=== PATIENT | female | born 1935 | race Caucasian/White ===

== ENCOUNTER 2024-06-29 11:24 | Inpatient (IN) | payer MEDICARE ==
[~2024-06-29] VITALS: Ht 162.6 cm; Wt 48.1 kg
[2024-06-29] MEDS ORDERED: ATOR10TA PO (11:56)
[2024-06-29] MEDS ORDERED: ASPI81TA31 PO (11:56)
[2024-06-29] MEDS ORDERED: ACET325T53 PO (11:56)
[2024-06-29] MEDS ORDERED: AMLO2.5T4 PO (11:56)
[2024-06-29] MEDS ORDERED: ACET325C7 PO (11:56)
[2024-06-29] MEDS ORDERED: NA P133E RC (11:56)
[2024-06-29] MEDS ORDERED: LEVO50TA8 PO (11:56)
[2024-06-29] MEDS ORDERED: MAGN400O6 PO (11:56)
[2024-06-29] MEDS ORDERED: BISA10SU61 RC (11:56)
[2024-06-29] MEDS ORDERED: ASCO500C18 PO (11:56)
[2024-06-29] MEDS ORDERED: MULT-213 PO (11:56)
[2024-06-29 12:43] LABS: BASOPHILS # (AUTO) 0.3 K/UL (0.0-0.2); EOSINOPHILS % (AUTO) 0.1 % (0.0-7.0); HEMATOCRIT 42.4 % (31.2-41.9); HEMOGLOBIN 13.8 g/dL (10.9-14.3); MEAN CORPUSCULAR HEMOGLOBIN 31.9 uug (24.7-32.8); MEAN CORPUSCULAR HGB CONC 33 g/dL (32.3-35.6); MONOCYTES # (AUTO) 0.4 K/uL (0.1-1.30); MONOCYTES % (AUTO) 2.8 % (0.0-11.0); NEUTROPHILS # (AUTO) 12.3 K/uL (1.8-8.9); NEUTROPHILS % (AUTO) 88.1 % (38.5-71.5); PLATELET COUNT (AUTO) 332 K/uL (179-408); RED BLOOD CELL COUNT(AUTO) 4.32 MIL/uL (3.63-4.92); RED CELL DISTRIBUTION WIDTH 13.4 % (12.3-17.7)
[2024-06-29 12:56] LABS: CALCIUM 8.9 mg/dL (8.5-10.1); CARBON DIOXIDE 38 mmol/L (21-32); CHLORIDE 107 mmol/L (98-107); CREATININE 0.4 mg/dL (0.6-1.3); GLUCOSE 120 mg/dL (74-106); SODIUM SERUM 146 mmol/L (136-145); UREA NITROGEN, BLOOD 14 mg/dL (7-18)
[2024-06-29 13:04] LABS: POTASSIUM 4.4 mmol/L (3.5-5.1)
[2024-06-29 13:07] LABS: DIFFERENTIAL COMMENT 1
[2024-06-29 13:09] LABS: ALANINE AMINOTRANSFERASE 21 U/L (14-59); ALBUMIN 2.1 g/dL (3.4-5.0); ALKALINE PHOSPHATASE 70 U/L (50-136); ASPARTATE AMINOTRANSFERASE 24 U/L (15-37); BILIRUBIN,DIRECT 0.1 mg/dL (0.0-0.2); BILIRUBIN,TOTAL 0.6 mg/dL (0.2-1.0); NT-PRO BNP 128 pg/mL (0-125); TOTAL PROTEIN, SERUM 6.3 g/dL (6.4-8.2)
[2024-06-29] MEDS: IV NORMAL SALINE 1000 ML BAG IV ONE (13:15)
[2024-06-29 15:49] LABS: *BILIRUBIN,URIN NEGATIVE (NEGATIVE); *BLOOD, URINE NEGATIVE (NEGATIVE); *COLOR,URINE YELLOW (YELLOW); *KETONES,URINE 1+ (NEGATIVE); *PROTEIN,URINE NEGATIVE (NEGATIVE); *UROBILINOGEN,URINE 0.2 E.U./dl (NORMAL); LEUKOCYTE ESTERASE ,URINE NEGATIVE (NEGATIVE); NITRITE, URINE NEGATIVE (NEGATIVE); PH,URINE 8.5 (5.0-8.0); UGLUCOSE NEGATIVE (NEGATIVE)
[2024-06-29 15:52] LABS: *CLARITY,URINE CLOUDY (CLEAR)
[2024-06-29 16:03] LABS: BACTERIA,URINE FEW /HPF (NONE SEEN); RBC,URINE 0-3 /HPF (0-3); SQUAMOUS EPITHELIAL CELL,UR NONE SEEN /HPF (NONE SEEN); URINE AMORPHOUS PHOSPHATES MODERATE /HPF; WBC,URINE 0-3 /HPF (0-3)
[2024-06-29] MEDS ORDERED: ASCO500T85 PO (17:28)
[2024-06-29] MEDS ORDERED: ACET-2154 PO (17:29)
[2024-06-29 18:42] VITALS: BP 151/73; TEMP 97.5; O2SAT 96
[2024-06-29] MEDS ORDERED: BISACODYL 10 MG SUPP.RECT RC PRN (19:00)
[2024-06-29] MEDS ORDERED: MAGNESIUM HYDROXIDE 30 ML LIQUID UDC PO PRN (19:00)
[2024-06-29] MEDS ORDERED: FLEET ENEMA 133 ML BOTTLE RC PRN (19:00)
[2024-06-29] MEDS ORDERED: ACETAMINOPHEN 325 MG TABLET PO PRN ×2 (19:00)
[2024-06-29 20:00] VITALS: BP 147/69; TEMP 97.5; O2SAT 96
[2024-06-29 20:24] VITALS: O2SAT 97
[2024-06-29] MEDS: ATORVASTATIN 10 MG TABLET PO SCH (21:13)
[2024-06-30] VITALS (7 sets, daily range): BP systolic 121–155; BP diastolic 63–70; TEMP 97.6–98.2; O2SAT 95–99
[2024-06-30] MEDS: LEVOTHYROXINE SODIUM 50 MCG TABLET PO SCH (06:07)
[2024-06-30] MEDS: ASPIRIN 81 MG TAB.CHEW PO SCH (08:38)
[2024-06-30] MEDS: MULTIVITAMINS,THERAPEUTIC TABLET PO SCH (08:38)
[2024-06-30] MEDS: ASCORBIC ACID 500 MG TABLET PO SCH (08:38)
[2024-06-30] MEDS: AMLODIPINE 2.5 MG TABLET PO SCH (08:51)
[2024-06-30] MEDS: IV D5W 1000ML 1,000 ML IV PRN (08:58)
[2024-06-30] MEDS: levoFLOXacin 500 MG/D5W 500 MG in PREMIXED 1 EACH IV ONE (12:46)
[2024-06-30] MEDS ORDERED: ALBUTEROL SULFATE 8 GM HFA.AER.AD IH PRN (14:00)
[2024-06-30] MEDS ORDERED: ALBUTEROL SULFATE 2.5 MG/3 ML NEBU NEB PRN (14:00)
[2024-07-01 06:00] VITALS: BP 150/75; TEMP 98.1; O2SAT 93
[2024-07-01 06:14] LABS: ABG BASE EXCESS 7.9 mmol/L (-2.0-3.0); ABG HCO3 31.2 mmol/L (21.0-28.0); ABG PCO2 38.4 mmHg (32.0-45.0); ABG PH 7.527 (7.350-7.450); ABG SITE RIGHT RADIAL; ABG TOTAL HEMOGLOBIN 14.6 G/dL (12.0-16.0); AaDO2 94.7 mmHg; COHb 0.8 % (0.5-1.5); MetHb 0.2 % (0.0-1.5); O2Hb 93.1 % (94.0-98.0)
[2024-07-01 06:49] LABS: BASOPHILS # (AUTO) 0.1 K/UL (0.0-0.2); BASOPHILS % (AUTO) 0.6 % (0.0-2.0); EOSINOPHILS % (AUTO) 0.2 % (0.0-7.0); HEMATOCRIT 40.8 % (31.2-41.9); HEMOGLOBIN 13.9 g/dL (10.9-14.3); LYMPHOCYTES # (AUTO) 1.1 K/uL (0.8-4.8); LYMPHOCYTES % (AUTO) 10.5 % (20.5-51.5); MEAN CORPUSCULAR HEMOGLOBIN 32.9 uug (24.7-32.8); MEAN CORPUSCULAR HGB CONC 34 g/dL (32.3-35.6); MEAN CORPUSCULAR VOLUME 96.5 fL (75.5-95.3); MONOCYTES # (AUTO) 0.5 K/uL (0.1-1.30); MONOCYTES % (AUTO) 4.6 % (0.0-11.0); NEUTROPHILS # (AUTO) 9.2 K/uL (1.8-8.9); NEUTROPHILS % (AUTO) 84.1 % (38.5-71.5); PLATELET COUNT (AUTO) 277 K/uL (179-408); RED BLOOD CELL COUNT(AUTO) 4.23 MIL/uL (3.63-4.92); WHITE BLOOD COUNT (AUTO) 10.9 K/uL (3.8-11.8)
[2024-07-01 07:19] LABS: ALANINE AMINOTRANSFERASE 22 U/L (14-59); ALBUMIN 2.7 g/dL (3.4-5.0); ALKALINE PHOSPHATASE 72 U/L (50-136); ASPARTATE AMINOTRANSFERASE 13 U/L (15-37); BILIRUBIN,TOTAL 0.7 mg/dL (0.2-1.0); CALCIUM 8.5 mg/dL (8.5-10.1); CARBON DIOXIDE 34 mmol/L (21-32); CREATININE 0.2 mg/dL (0.6-1.3); GLUCOSE 107 mg/dL (74-106); PHOSPHOROUS 2.7 mg/dL (2.5-4.9); TOTAL PROTEIN, SERUM 6.1 g/dL (6.4-8.2); UREA NITROGEN, BLOOD 8 mg/dL (7-18)
[2024-07-01 07:43] LABS: DIFFERENTIAL COMMENT 1
[2024-07-01 07:54] LABS: CHLORIDE 98 mmol/L (98-107); SODIUM SERUM 132 mmol/L (136-145)
[2024-07-01 08:00] VITALS: BP 132/74; TEMP 97.6; O2SAT 93
[2024-07-01 08:06] LABS: POTASSIUM 2.5 mmol/L (3.5-5.1)
[2024-07-01] MEDS: POTASSIUM CHLORIDE 20 MEQ TAB.PRT.SR PO SCH (10:21)
[2024-07-01 11:35] VITALS: BP 154/69; TEMP 97.1; O2SAT 95
[2024-07-01] MEDS: levoFLOXacin 250MG /D5W 50 ML IV SCH (13:42)
[2024-07-01 15:28] LABS: PRE ALBUMIN 17.2 MG/DL (18.0-35.7)
[2024-07-01 15:47] VITALS: BP 139/87; TEMP 97.8; O2SAT 95
[2024-07-01 20:00] VITALS: BP 150/67; TEMP 98; O2SAT 95
[2024-07-02 04:11] VITALS: O2SAT 98
[2024-07-02 06:00] VITALS: BP 146/79; TEMP 98; O2SAT 95
[2024-07-02 07:50] LABS: BASOPHILS # (AUTO) 0.1 K/UL (0.0-0.2); BASOPHILS % (AUTO) 0.5 % (0.0-2.0); EOSINOPHILS % (AUTO) 0.3 % (0.0-7.0); HEMATOCRIT 44.8 % (31.2-41.9); HEMOGLOBIN 14.9 g/dL (10.9-14.3); LYMPHOCYTES # (AUTO) 1.1 K/uL (0.8-4.8); MEAN CORPUSCULAR HEMOGLOBIN 32.1 uug (24.7-32.8); MEAN CORPUSCULAR HGB CONC 33 g/dL (32.3-35.6); MEAN CORPUSCULAR VOLUME 96.5 fL (75.5-95.3); MONOCYTES # (AUTO) 0.6 K/uL (0.1-1.30); MONOCYTES % (AUTO) 5.5 % (0.0-11.0); NEUTROPHILS # (AUTO) 9.6 K/uL (1.8-8.9); NEUTROPHILS % (AUTO) 83.7 % (38.5-71.5); PLATELET COUNT (AUTO) 288 K/uL (179-408); RED BLOOD CELL COUNT(AUTO) 4.64 MIL/uL (3.63-4.92); RED CELL DISTRIBUTION WIDTH 13.3 % (12.3-17.7); WHITE BLOOD COUNT (AUTO) 11.5 K/uL (3.8-11.8)
[2024-07-02 07:59] LABS: CALCIUM 8.6 mg/dL (8.5-10.1); CARBON DIOXIDE 32 mmol/L (21-32); CHLORIDE 100 mmol/L (98-107); CREATININE 0.2 mg/dL (0.6-1.3); GLUCOSE 94 mg/dL (74-106); MAGNESIUM 1.8 mg/dL (1.8-2.4); PHOSPHOROUS 2.9 mg/dL (2.5-4.9); POTASSIUM 3.8 mmol/L (3.5-5.1); SODIUM SERUM 138 mmol/L (136-145); UREA NITROGEN, BLOOD 7 mg/dL (7-18)
[2024-07-02 08:14] LABS: DIFFERENTIAL COMMENT 1
[2024-07-02 11:53] VITALS: BP 135/81; TEMP 97.4; O2SAT 93
[2024-07-02 16:00] VITALS: BP 122/70; TEMP 97.6; O2SAT 96
[2024-07-02 20:21] VITALS: BP 127/73; TEMP 97.6; O2SAT 96
[2024-07-02 21:22] VITALS: O2SAT 96
[2024-07-03 06:07] VITALS: BP 130/77; TEMP 97.6; O2SAT 95
[2024-07-03 07:32] LABS: BASOPHILS % (AUTO) 0.4 % (0.0-2.0); EOSINOPHILS % (AUTO) 0.4 % (0.0-7.0); HEMATOCRIT 43.1 % (31.2-41.9); HEMOGLOBIN 14.8 g/dL (10.9-14.3); LYMPHOCYTES # (AUTO) 1.4 K/uL (0.8-4.8); LYMPHOCYTES % (AUTO) 13.4 % (20.5-51.5); MEAN CORPUSCULAR HEMOGLOBIN 33.2 uug (24.7-32.8); MEAN CORPUSCULAR HGB CONC 34 g/dL (32.3-35.6); MEAN CORPUSCULAR VOLUME 96.5 fL (75.5-95.3); MONOCYTES # (AUTO) 0.5 K/uL (0.1-1.30); MONOCYTES % (AUTO) 4.6 % (0.0-11.0); NEUTROPHILS # (AUTO) 8.5 K/uL (1.8-8.9); NEUTROPHILS % (AUTO) 81.2 % (38.5-71.5); PLATELET COUNT (AUTO) 280 K/uL (179-408); RED BLOOD CELL COUNT(AUTO) 4.47 MIL/uL (3.63-4.92); RED CELL DISTRIBUTION WIDTH 13.4 % (12.3-17.7); WHITE BLOOD COUNT (AUTO) 10.4 K/uL (3.8-11.8)
[2024-07-03 07:35] LABS: DIFFERENTIAL COMMENT 1
[2024-07-03 07:54] LABS: CALCIUM 8.6 mg/dL (8.5-10.1); CARBON DIOXIDE 31 mmol/L (21-32); CHLORIDE 98 mmol/L (98-107); CREATININE 0.4 mg/dL (0.6-1.3); GLUCOSE 119 mg/dL (74-106); PHOSPHOROUS 3.1 mg/dL (2.5-4.9); POTASSIUM 3.4 mmol/L (3.5-5.1); SODIUM SERUM 135 mmol/L (136-145); UREA NITROGEN, BLOOD 14 mg/dL (7-18)
[2024-07-03 12:00] VITALS: BP 120/66; TEMP 97; O2SAT 96
[2024-07-03] MEDS: POTASSIUM CHLORIDE 20 MEQ TAB.PRT.SR PO ONE (14:46)
[2024-07-03 16:00] VITALS: BP 126/67; TEMP 97.4; O2SAT 93
== END 2024-07-03 18:11 | DRG 186 ==
LOC: ER 11:27 → TELE3 17:04 → MEDSURG3 06-30 10:00
PROVIDERS: ADMIT Internal Medicine; ATTEND Internal Medicine
PROC: 05HB33Z Insertion of Infusion Device into Right Basilic Vein, Percutaneous Approach (ICD-10-PCS; principal; 2024-06-29)
DX: J90 Pleural effusion, not elsewhere classified (principal); J96.01 Acute respiratory failure with hypoxia; I69.359 Hemiplegia and hemiparesis following cerebral infarction affecting unspecified side; E87.0 Hyperosmolality and hypernatremia; I69.351 Hemiplegia and hemiparesis following cerebral infarction affecting right dominant side; E87.1 Hypo-osmolality and hyponatremia; N39.0 Urinary tract infection, site not specified; R62.7 Adult failure to thrive; E86.0 Dehydration; R53.81 Other malaise; E78.5 Hyperlipidemia, unspecified; R91.1 Solitary pulmonary nodule; E03.9 Hypothyroidism, unspecified; E87.6 Hypokalemia; R26.2 Difficulty in walking, not elsewhere classified; F17.210 Nicotine dependence, cigarettes, uncomplicated; I25.10 Atherosclerotic heart disease of native coronary artery without angina pectoris; Z95.5 Presence of coronary angioplasty implant and graft; Z88.6 Allergy status to analgesic agent; Z87.01 Personal history of pneumonia (recurrent); Z88.0 Allergy status to penicillin; Z91.81 History of falling; Z99.81 Dependence on supplemental oxygen; J43.1 Panlobular emphysema; I71.40 Abdominal aortic aneurysm, without rupture, unspecified; I10 Essential (primary) hypertension; K44.9 Diaphragmatic hernia without obstruction or gangrene; K57.30 Diverticulosis of large intestine without perforation or abscess without bleeding; K80.20 Calculus of gallbladder without cholecystitis without obstruction; M89.8X9 Other specified disorders of bone, unspecified site; R29.6 Repeated falls; Z79.899 Other long term (current) drug therapy; R13.10 Dysphagia, unspecified
CPT/HCPCS: 36415; 36600; 70450; 71045; 71250; 76604; 82803; 83605; 83735; 84100; 84484; 85025; 85730; 87040; 87077; 93005; A4606; A4663; A6213; C1758; G0378; J1956; J7040; J7042; J7070

== ENCOUNTER 2024-07-03 16:40 | Inpatient (IN) | payer MEDICARE ==
[~2024-07-03] VITALS: Ht 162.6 cm; Wt 49.4 kg
[~2024-07-03 16:40] MED LIST: ACET-2154 PO; ACET325T53 PO; AMLO2.5T4 PO; ASCO500T85 PO; ASPI81TA31 PO; ATOR10TA PO; BISA10SU61 RC; LEVO50TA8 PO; MAGN400O6 PO; MULT-213 PO; NA P133E RC
[2024-07-03 18:50] VITALS: BP 117/71; TEMP 97.4; O2SAT 93
[2024-07-03 18:57] VITALS: BP 152/71; TEMP 97.5; O2SAT 97
[2024-07-03 20:00] VITALS: BP 129/68; TEMP 97.4; O2SAT 95
[2024-07-03] MEDS ORDERED: FLEET ENEMA 133 ML BOTTLE RC PRN (22:15)
[2024-07-03] MEDS ORDERED: MAGNESIUM HYDROXIDE 30 ML LIQUID UDC PO PRN (22:15)
[2024-07-03] MEDS ORDERED: ACETAMINOPHEN 325 MG TABLET-SA PATIENTS-PAIN ONLY PO PRN (22:15)
[2024-07-04] MEDS: LEVOTHYROXINE SODIUM 50 MCG TABLET PO SCH (06:20)
[2024-07-04 06:46] VITALS: BP 118/75; TEMP 97.6; O2SAT 94
[2024-07-04] MEDS: ASCORBIC ACID 500 MG TABLET PO SCH (09:00)
[2024-07-04] MEDS: MULTIVITAMINS,THERAPEUTIC TABLET PO SCH (09:00)
[2024-07-04] MEDS: ASPIRIN 81 MG TAB.CHEW PO SCH (09:00)
[2024-07-04] MEDS ORDERED: Medication Not On Formulary EA (Multivitamins W-Minerals (Multivitamin With Minerals) 1 PO SCH (09:00)
[2024-07-04] MEDS: AMLODIPINE 2.5 MG TABLET PO SCH (09:39)
[2024-07-04 16:22] VITALS: BP 120/67; TEMP 97.6; O2SAT 95
[2024-07-04] MEDS: ATORVASTATIN 10 MG TABLET PO SCH (20:29)
[2024-07-04 20:38] VITALS: BP 135/72; TEMP 97.5; O2SAT 93
[2024-07-05 07:02] LABS: BASOPHILS # (AUTO) 0.1 K/UL (0.0-0.2); BASOPHILS % (AUTO) 0.8 % (0.0-2.0); EOSINOPHILS # (AUTO) 0.3 K/uL (0.0-0.7); EOSINOPHILS % (AUTO) 2.7 % (0.0-7.0); HEMATOCRIT 31.8 % (31.2-41.9); HEMOGLOBIN 10.8 g/dL (10.9-14.3); LYMPHOCYTES # (AUTO) 1.5 K/uL (0.8-4.8); LYMPHOCYTES % (AUTO) 11.8 % (20.5-51.5); MEAN CORPUSCULAR HEMOGLOBIN 27.3 uug (24.7-32.8); MEAN CORPUSCULAR HGB CONC 34 g/dL (32.3-35.6); MEAN CORPUSCULAR VOLUME 80.7 fL (75.5-95.3); MONOCYTES # (AUTO) 0.8 K/uL (0.1-1.30); NEUTROPHILS # (AUTO) 9.9 K/uL (1.8-8.9); NEUTROPHILS % (AUTO) 78.7 % (38.5-71.5); PLATELET COUNT (AUTO) 482 K/uL (179-408); RED BLOOD CELL COUNT(AUTO) 3.94 MIL/uL (3.63-4.92); RED CELL DISTRIBUTION WIDTH 13.5 % (12.3-17.7); WHITE BLOOD COUNT (AUTO) 12.6 K/uL (3.8-11.8)
[2024-07-05 07:05] LABS: DIFFERENTIAL COMMENT 1
[2024-07-05 07:27] LABS: CALCIUM 8.9 mg/dL (8.5-10.1); CARBON DIOXIDE 30 mmol/L (21-32); CHLORIDE 98 mmol/L (98-107); CREATININE 0.9 mg/dL (0.6-1.3); GLUCOSE 143 mg/dL (74-106); MAGNESIUM 1.7 mg/dL (1.8-2.4); PHOSPHOROUS 3.9 mg/dL (2.5-4.9); POTASSIUM 4.3 mmol/L (3.5-5.1); SODIUM SERUM 134 mmol/L (136-145); UREA NITROGEN, BLOOD 14 mg/dL (7-18)
[2024-07-05 07:34] VITALS: BP 117/61; TEMP 97.4; O2SAT 93
[2024-07-05] MEDS: MAGNESIUM OXIDE 400 MG TABLET PO ONE (10:15)
[2024-07-05 16:21] VITALS: BP 128/65; TEMP 97.6; O2SAT 95
[2024-07-05] MEDS: levoFLOXacin 500 MG TABLET PO SCH (16:50)
[2024-07-05 19:36] VITALS: BP 112/63; TEMP 97.2; O2SAT 92
[2024-07-06 06:12] VITALS: BP 122/69; TEMP 97.5; O2SAT 99
[2024-07-06 13:40] LABS: THYROID STIMULATING HORMONE 26.851 mIU/mL (0.358-3.740)
[2024-07-06 16:03] VITALS: BP 117/57; TEMP 97.6; O2SAT 97
[2024-07-06 17:00] VITALS: O2SAT 97
[2024-07-06 20:00] VITALS: BP 96/55; TEMP 97.2; O2SAT 100
[2024-07-07 06:00] VITALS: BP 100/55; TEMP 97.3; O2SAT 95
[2024-07-07 06:13] VITALS: O2SAT 97
[2024-07-07 07:39] LABS: BASOPHILS % (AUTO) 0.4 % (0.0-2.0); EOSINOPHILS % (AUTO) 0.5 % (0.0-7.0); HEMATOCRIT 39.2 % (31.2-41.9); HEMOGLOBIN 13.1 g/dL (10.9-14.3); LYMPHOCYTES # (AUTO) 1.4 K/uL (0.8-4.8); LYMPHOCYTES % (AUTO) 17.3 % (20.5-51.5); MEAN CORPUSCULAR HEMOGLOBIN 32.7 uug (24.7-32.8); MEAN CORPUSCULAR HGB CONC 34 g/dL (32.3-35.6); MEAN CORPUSCULAR VOLUME 97.6 fL (75.5-95.3); MONOCYTES # (AUTO) 0.5 K/uL (0.1-1.30); MONOCYTES % (AUTO) 5.5 % (0.0-11.0); NEUTROPHILS # (AUTO) 6.3 K/uL (1.8-8.9); NEUTROPHILS % (AUTO) 76.3 % (38.5-71.5); PLATELET COUNT (AUTO) 253 K/uL (179-408); RED BLOOD CELL COUNT(AUTO) 4.01 MIL/uL (3.63-4.92); RED CELL DISTRIBUTION WIDTH 13.8 % (12.3-17.7); WHITE BLOOD COUNT (AUTO) 8.2 K/uL (3.8-11.8)
[2024-07-07 07:51] LABS: DIFFERENTIAL COMMENT 1
[2024-07-07 07:58] LABS: CALCIUM 8.5 mg/dL (8.5-10.1); CARBON DIOXIDE 35 mmol/L (21-32); CHLORIDE 104 mmol/L (98-107); CREATININE 0.4 mg/dL (0.6-1.3); GLUCOSE 84 mg/dL (74-106); MAGNESIUM 2.5 mg/dL (1.8-2.4); POTASSIUM 3.5 mmol/L (3.5-5.1); SODIUM SERUM 141 mmol/L (136-145); UREA NITROGEN, BLOOD 24 mg/dL (7-18)
[2024-07-07 16:00] VITALS: BP 116/55; TEMP 97.2; O2SAT 97
[2024-07-07 19:34] VITALS: BP 116/59; TEMP 97.6; O2SAT 97
[2024-07-07] MEDS: MEGESTROL ACETATE 400 MG/10 ML LIQUID UDC PO SCH (21:00)
[2024-07-08 05:05] VITALS: O2SAT 97
[2024-07-08 05:40] VITALS: BP 117/67; TEMP 97.4; O2SAT 91
[2024-07-08 12:00] VITALS: O2SAT 96
[2024-07-08 16:00] VITALS: BP 109/63; TEMP 97.2; O2SAT 96
[2024-07-08 20:00] VITALS: BP 105/58; TEMP 98.5; O2SAT 100
[2024-07-09 04:15] VITALS: O2SAT 100
[2024-07-09 06:00] VITALS: BP 96/58; TEMP 97.5; O2SAT 95
[2024-07-09 09:00] VITALS: O2SAT 98
[2024-07-09 16:02] VITALS: BP 118/65; TEMP 98.1; O2SAT 95
[2024-07-09 20:00] VITALS: BP 94/54; TEMP 98.1; O2SAT 97
[2024-07-10 05:41] VITALS: O2SAT 98
[2024-07-10 06:00] VITALS: BP 110/53; TEMP 97.6; O2SAT 98
[2024-07-10] MEDS: MODAFINIL 100 MG TABLET PO SCH (08:58)
[2024-07-10 16:16] VITALS: BP 105/63; TEMP 98.7; O2SAT 99
[2024-07-10 19:39] VITALS: BP 95/62; TEMP 98.2; O2SAT 97
[2024-07-11 06:35] VITALS: BP 132/69; TEMP 98.3; O2SAT 98
[2024-07-11 16:02] VITALS: BP 119/60; TEMP 97.9; O2SAT 96
[2024-07-11 19:39] VITALS: BP 121/63; TEMP 97.4; O2SAT 98
[2024-07-11 21:29] VITALS: O2SAT 98
[2024-07-12 06:30] VITALS: BP 107/61; TEMP 97.5; O2SAT 96
[2024-07-12 09:35] VITALS: BP 136/86; TEMP 98; O2SAT 99
[2024-07-12 14:35] VITALS: O2SAT 97
[2024-07-12 17:49] VITALS: BP 106/68; TEMP 98; O2SAT 98
[2024-07-12 20:07] VITALS: BP 97/56; TEMP 97.6; O2SAT 99
[2024-07-12 20:19] VITALS: O2SAT 97
[2024-07-13] VITALS (10 sets, daily range): BP systolic 100–113; BP diastolic 55–67; TEMP 97.5–98.2; O2SAT 94–100
[2024-07-13] MEDS: ALBUTEROL SULFATE 1.25 MG/3 ML NEBU NEB SCH (12:39)
[2024-07-13] MEDS: IPRATROPIUM BROMIDE 0.5 MG/2.5 ML NEBU NEB SCH (12:39)
[2024-07-14] VITALS (10 sets, daily range): BP systolic 96–111; BP diastolic 52–58; TEMP 97.4–97.6; O2SAT 92–99
[2024-07-14 06:49] LABS: BASOPHILS % (AUTO) 0.5 % (0.0-2.0); EOSINOPHILS % (AUTO) 0.4 % (0.0-7.0); HEMATOCRIT 37.6 % (31.2-41.9); HEMOGLOBIN 12.2 g/dL (10.9-14.3); LYMPHOCYTES # (AUTO) 1.2 K/uL (0.8-4.8); LYMPHOCYTES % (AUTO) 13.6 % (20.5-51.5); MEAN CORPUSCULAR HEMOGLOBIN 32.5 uug (24.7-32.8); MEAN CORPUSCULAR HGB CONC 33 g/dL (32.3-35.6); MEAN CORPUSCULAR VOLUME 99.9 fL (75.5-95.3); MONOCYTES # (AUTO) 0.4 K/uL (0.1-1.30); MONOCYTES % (AUTO) 4.5 % (0.0-11.0); NEUTROPHILS # (AUTO) 7.3 K/uL (1.8-8.9); PLATELET COUNT (AUTO) 242 K/uL (179-408); RED BLOOD CELL COUNT(AUTO) 3.77 MIL/uL (3.63-4.92); RED CELL DISTRIBUTION WIDTH 15.1 % (12.3-17.7)
[2024-07-14 07:01] LABS: DIFFERENTIAL COMMENT 1
[2024-07-14 07:02] LABS: ALANINE AMINOTRANSFERASE 17 U/L (14-59); ALBUMIN 2.7 g/dL (3.4-5.0); ALKALINE PHOSPHATASE 76 U/L (50-136); ASPARTATE AMINOTRANSFERASE 13 U/L (15-37); BILIRUBIN,TOTAL 0.7 mg/dL (0.2-1.0); CALCIUM 8.7 mg/dL (8.5-10.1); CARBON DIOXIDE 36 mmol/L (21-32); CHLORIDE 107 mmol/L (98-107); CREATININE 0.5 mg/dL (0.6-1.3); GLUCOSE 79 mg/dL (74-106); MAGNESIUM 2.6 mg/dL (1.8-2.4); PHOSPHOROUS 3.3 mg/dL (2.5-4.9); SODIUM SERUM 150 mmol/L (136-145); TOTAL PROTEIN, SERUM 6.5 g/dL (6.4-8.2); UREA NITROGEN, BLOOD 35 mg/dL (7-18)
[2024-07-14 08:59] LABS: ABG BASE EXCESS 6.6 mmol/L (-2.0-3.0); ABG HCO3 30.4 mmol/L (21.0-28.0); ABG PCO2 40.2 mmHg (32.0-45.0); ABG PH 7.496 (7.350-7.450); ABG PO2 94.8 mmHg (83.0-108.0); ABG SITE LEFT BRACHIAL; ABG TOTAL HEMOGLOBIN 12.7 G/dL (12.0-16.0); AaDO2 97.7 mmHg; COHb 0.3 % (0.5-1.5); MetHb 0.3 % (0.0-1.5)
[2024-07-14] MEDS: IV D5 1/2 NS 1000 ML 1,000 ML IV PRN (15:37)
[2024-07-15] VITALS (10 sets, daily range): BP systolic 96–119; BP diastolic 56–96; TEMP 97.5–97.6; O2SAT 94–99
[2024-07-15 06:40] LABS: BASOPHILS % (AUTO) 0.3 % (0.0-2.0); EOSINOPHILS # (AUTO) 0.1 K/uL (0.0-0.7); EOSINOPHILS % (AUTO) 0.7 % (0.0-7.0); HEMATOCRIT 37.4 % (31.2-41.9); HEMOGLOBIN 12.4 g/dL (10.9-14.3); LYMPHOCYTES # (AUTO) 1.5 K/uL (0.8-4.8); LYMPHOCYTES % (AUTO) 13.6 % (20.5-51.5); MEAN CORPUSCULAR HEMOGLOBIN 32.9 uug (24.7-32.8); MEAN CORPUSCULAR HGB CONC 33 g/dL (32.3-35.6); MEAN CORPUSCULAR VOLUME 99.4 fL (75.5-95.3); MONOCYTES # (AUTO) 0.5 K/uL (0.1-1.30); MONOCYTES % (AUTO) 4.6 % (0.0-11.0); NEUTROPHILS # (AUTO) 8.7 K/uL (1.8-8.9); NEUTROPHILS % (AUTO) 80.8 % (38.5-71.5); PLATELET COUNT (AUTO) 226 K/uL (179-408); RED BLOOD CELL COUNT(AUTO) 3.76 MIL/uL (3.63-4.92); RED CELL DISTRIBUTION WIDTH 15.4 % (12.3-17.7); WHITE BLOOD COUNT (AUTO) 10.8 K/uL (3.8-11.8)
[2024-07-15 06:50] LABS: DIFFERENTIAL COMMENT 1
[2024-07-15 07:06] LABS: CALCIUM 9.1 mg/dL (8.5-10.1); CARBON DIOXIDE 32 mmol/L (21-32); CHLORIDE 108 mmol/L (98-107); CREATININE 0.5 mg/dL (0.6-1.3); GLUCOSE 104 mg/dL (74-106); MAGNESIUM 2.5 mg/dL (1.8-2.4); PHOSPHOROUS 2.4 mg/dL (2.5-4.9); POTASSIUM 3.6 mmol/L (3.5-5.1); SODIUM SERUM 145 mmol/L (136-145); UREA NITROGEN, BLOOD 31 mg/dL (7-18)
[2024-07-15 07:40] LABS: THYROID STIMULATING HORMONE 56.738 mIU/mL (0.358-3.740)
[2024-07-15] MEDS ORDERED: ALBUTEROL SULFATE 1.25 MG/3 ML NEBU ONE (07:43)
[2024-07-15] MEDS: LEVOTHYROXINE SODIUM 100 MCG VIAL IV SCH (09:49)
[2024-07-15] MEDS: NEUTRA PHOS PACKET PO ONE (14:45)
[2024-07-16] VITALS (10 sets, daily range): BP systolic 101–111; BP diastolic 55–62; TEMP 97.4–97.6; O2SAT 93–99
[2024-07-16] MEDS: LIOTHYRONINE SODIUM 5 MCG TABLET PO SCH (07:08)
[2024-07-17] VITALS (10 sets, daily range): BP systolic 114–123; BP diastolic 51–68; TEMP 97.7–98.5; O2SAT 95–100
[2024-07-17] MEDS: ACETAMINOPHEN 325 MG TABLET PO PRN (17:55)
[2024-07-18] VITALS (14 sets, daily range): BP systolic 121–146; BP diastolic 51–75; TEMP 97–98; O2SAT 96–99
[2024-07-18] MEDS: HYOSCYAMINE SULFATE 0.125 MG TABLET PO PRN (13:12)
[2024-07-18] MEDS: MEGESTROL ACETATE 400 MG/10 ML LIQUID UDC PO SCH (21:00)
[2024-07-19] VITALS (7 sets, daily range): BP systolic 101–103; BP diastolic 60–70; TEMP 98.1–98.8; O2SAT 95–99
[2024-07-19] MEDS: BISACODYL 10 MG SUPP.RECT RC PRN (15:29)
[2024-07-19] MEDS ORDERED: REMEDY ESSENTIAL ZINC PASTE 113 GM TOP SCH (21:00)
== END 2024-07-19 19:16 | disposition short-term general hospital (02) | DRG 186 ==
PROVIDERS: ADMIT Physical Medicine & Rehabilitation Pain Medicine; ATTEND Physical Medicine & Rehabilitation Pain Medicine
DX: J90 Pleural effusion, not elsewhere classified (principal); J96.01 Acute respiratory failure with hypoxia; J98.11 Atelectasis; E46 Unspecified protein-calorie malnutrition; E87.0 Hyperosmolality and hypernatremia; E87.1 Hypo-osmolality and hyponatremia; E03.9 Hypothyroidism, unspecified; E78.5 Hyperlipidemia, unspecified; R53.1 Weakness; E86.0 Dehydration; I10 Essential (primary) hypertension; I71.40 Abdominal aortic aneurysm, without rupture, unspecified; J43.1 Panlobular emphysema; K44.9 Diaphragmatic hernia without obstruction or gangrene; R29.6 Repeated falls; R62.7 Adult failure to thrive; Z86.73 Personal history of transient ischemic attack (TIA), and cerebral infarction without residual deficits; Z79.899 Other long term (current) drug therapy; J44.9 Chronic obstructive pulmonary disease, unspecified; F32.9 Major depressive disorder, single episode, unspecified; F39 Unspecified mood [affective] disorder; F41.9 Anxiety disorder, unspecified; I25.10 Atherosclerotic heart disease of native coronary artery without angina pectoris; K57.30 Diverticulosis of large intestine without perforation or abscess without bleeding; R91.1 Solitary pulmonary nodule; R53.81 Other malaise; K80.20 Calculus of gallbladder without cholecystitis without obstruction; M16.12 Unilateral primary osteoarthritis, left hip; M89.8X9 Other specified disorders of bone, unspecified site; Z74.01 Bed confinement status; Z79.82 Long term (current) use of aspirin; Z87.891 Personal history of nicotine dependence; Z88.0 Allergy status to penicillin; Z88.6 Allergy status to analgesic agent
CPT/HCPCS: 36415; 36600; 70030-TC; 70551; 71045; 74018; 83735; 83921; 84100; 84443; 85025; 87040; 94640; 94664; 94760; 97535-GO-CO; A6209; C1758; J3590; J7042; J8999

== ENCOUNTER 2024-07-19 19:50 | Inpatient (IN) | payer MEDICARE ==
[~2024-07-19] VITALS: Ht 162.6 cm; Wt 49.0 kg
[2024-07-19 20:36] VITALS: BP 99/45; TEMP 97.9; O2SAT 100
[2024-07-20] VITALS (13 sets, daily range): BP systolic 111–128; BP diastolic 52–74; TEMP 97.3–97.9; O2SAT 95–100
[2024-07-20] MEDS ORDERED: ONDANSETRON 4 MG/2 ML VIAL IV PRN (01:15)
[2024-07-20] MEDS ORDERED: MAGNESIUM HYDROXIDE 30 ML LIQUID UDC PO PRN (01:15)
[2024-07-20] MEDS ORDERED: IPRATROPIUM BROMIDE 0.5 MG/2.5 ML NEBU NEB PRN (01:15)
[2024-07-20] MEDS ORDERED: BISACODYL 10 MG SUPP.RECT RC PRN (01:15)
[2024-07-20] MEDS ORDERED: REMEDY ESSENTIAL ZINC PASTE 113 GM TP PRN (01:15)
[2024-07-20] MEDS ORDERED: HYOSCYAMINE SULFATE 0.125 MG TABLET PO PRN (01:15)
[2024-07-20] MEDS ORDERED: levoFLOXacin 500 MG/D5W 500 MG in PREMIXED 1 EACH IV ONE (02:15)
[2024-07-20] MEDS: LIOTHYRONINE SODIUM 5 MCG TABLET PO SCH (07:00)
[2024-07-20 07:02] LABS: BASOPHILS % (AUTO) 0.4 % (0.0-2.0); EOSINOPHILS % (AUTO) 0.6 % (0.0-7.0); HEMOGLOBIN 10.5 g/dL (10.9-14.3); LYMPHOCYTES % (AUTO) 14.8 % (20.5-51.5); MEAN CORPUSCULAR HEMOGLOBIN 33.4 uug (24.7-32.8); MEAN CORPUSCULAR HGB CONC 34 g/dL (32.3-35.6); MEAN CORPUSCULAR VOLUME 98.8 fL (75.5-95.3); MONOCYTES # (AUTO) 0.3 K/uL (0.1-1.30); MONOCYTES % (AUTO) 4.7 % (0.0-11.0); NEUTROPHILS # (AUTO) 5.6 K/uL (1.8-8.9); NEUTROPHILS % (AUTO) 79.5 % (38.5-71.5); PLATELET COUNT (AUTO) 329 K/uL (179-408); RED BLOOD CELL COUNT(AUTO) 3.14 MIL/uL (3.63-4.92); RED CELL DISTRIBUTION WIDTH 15.2 % (12.3-17.7); WHITE BLOOD COUNT (AUTO) 7.1 K/uL (3.8-11.8)
[2024-07-20 07:16] LABS: DIFFERENTIAL COMMENT 1
[2024-07-20 07:25] LABS: ALANINE AMINOTRANSFERASE 13 U/L (14-59); ALBUMIN 1.7 g/dL (3.4-5.0); ALKALINE PHOSPHATASE 90 U/L (50-136); ASPARTATE AMINOTRANSFERASE 9 U/L (15-37); BILIRUBIN,TOTAL 0.5 mg/dL (0.2-1.0); CALCIUM 8.3 mg/dL (8.5-10.1); CARBON DIOXIDE 32 mmol/L (21-32); CHLORIDE 106 mmol/L (98-107); CREATININE 0.3 mg/dL (0.6-1.3); GLUCOSE 86 mg/dL (74-106); PHOSPHOROUS 2.7 mg/dL (2.5-4.9); POTASSIUM 3.3 mmol/L (3.5-5.1); SODIUM SERUM 141 mmol/L (136-145); TOTAL PROTEIN, SERUM 5.3 g/dL (6.4-8.2); UREA NITROGEN, BLOOD 11 mg/dL (7-18)
[2024-07-20] MEDS: MODAFINIL 100 MG TABLET PO SCH (08:39)
[2024-07-20] MEDS: ASPIRIN 81 MG TAB.CHEW PO SCH (08:39)
[2024-07-20] MEDS: MULTIVITAMINS,THERAPEUTIC TABLET PO SCH (08:39)
[2024-07-20] MEDS: ASCORBIC ACID 500 MG TABLET PO SCH (08:39)
[2024-07-20] MEDS: AMLODIPINE 2.5 MG TABLET PO SCH (08:40)
[2024-07-20] MEDS: LEVOTHYROXINE SODIUM 50 MCG TABLET PO SCH (08:48)
[2024-07-20] MEDS: MEGESTROL ACETATE 400 MG/10 ML LIQUID UDC PO SCH (09:04)
[2024-07-20] MEDS: levoFLOXacin 500 MG/D5W 500 MG in PREMIXED 1 EACH IV SCH (09:05)
[2024-07-20] MEDS: ACETYLCYSTEINE 10% 4ML VIAL NEB SCH (11:51)
[2024-07-20] MEDS: POTASSIUM CHLORIDE 20 MEQ POWDER PACKET PO ONE (11:57)
[2024-07-20] MEDS: IPRATROPIUM BROMIDE 0.5 MG/2.5 ML NEBU NEB SCH (12:54)
[2024-07-20] MEDS: ALBUTEROL SULFATE 1.25 MG/3 ML NEBU NEB SCH (12:54)
[2024-07-20] MEDS ORDERED: IPRATROPIUM BROMIDE 0.5 MG/2.5 ML NEBU NEB SCH (13:30)
[2024-07-20] MEDS: ALBUTEROL SULFATE 2.5 MG/ 0.5 ML NEBU NEB PRN (16:01)
[2024-07-20] MEDS: IV D5/ 0.9% NACL 1,000 ML IV PRN (16:07)
[2024-07-20] MEDS ORDERED: ACETYLCYSTEINE 10% 4ML VIAL ONE (19:44)
[2024-07-20] MEDS ORDERED: CEFEPIME HCL 1 G in IV DEXTROSE 5% 50 ML IV SCH (20:30)
[2024-07-20] MEDS: ATORVASTATIN 10 MG TABLET PO SCH (22:00)
[2024-07-20] MEDS ORDERED: CEFEPIME HCL 1 G VIAL ONE (23:09)
[2024-07-20] MEDS: CEFEPIME HCL 1 G in IV DEXTROSE 5% 50 ML IV SCH (23:21)
[2024-07-21] VITALS (14 sets, daily range): BP systolic 103–128; BP diastolic 51–74; TEMP 97.5–98.4; O2SAT 94–100
[2024-07-21] MEDS ORDERED: VANCOMYCIN HCL 500 MG VIAL ONE (02:14)
[2024-07-21] MEDS: LEVOTHYROXINE SODIUM 50 MCG TABLET PO SCH (06:46)
[2024-07-21 07:07] LABS: BASOPHILS % (AUTO) 0.3 % (0.0-2.0); EOSINOPHILS % (AUTO) 0.3 % (0.0-7.0); HEMATOCRIT 28.4 % (31.2-41.9); HEMOGLOBIN 9.8 g/dL (10.9-14.3); LYMPHOCYTES # (AUTO) 0.9 K/uL (0.8-4.8); LYMPHOCYTES % (AUTO) 12.4 % (20.5-51.5); MEAN CORPUSCULAR HGB CONC 35 g/dL (32.3-35.6); MEAN CORPUSCULAR VOLUME 98.5 fL (75.5-95.3); MONOCYTES # (AUTO) 0.4 K/uL (0.1-1.30); MONOCYTES % (AUTO) 4.9 % (0.0-11.0); NEUTROPHILS # (AUTO) 5.9 K/uL (1.8-8.9); NEUTROPHILS % (AUTO) 82.1 % (38.5-71.5); PLATELET COUNT (AUTO) 383 K/uL (179-408); RED BLOOD CELL COUNT(AUTO) 2.88 MIL/uL (3.63-4.92); RED CELL DISTRIBUTION WIDTH 15.6 % (12.3-17.7); WHITE BLOOD COUNT (AUTO) 7.2 K/uL (3.8-11.8)
[2024-07-21 07:16] LABS: DIFFERENTIAL COMMENT 1
[2024-07-21 07:28] LABS: ALANINE AMINOTRANSFERASE 11 U/L (14-59); ALBUMIN 1.7 g/dL (3.4-5.0); ALKALINE PHOSPHATASE 91 U/L (50-136); ASPARTATE AMINOTRANSFERASE 16 U/L (15-37); BILIRUBIN,TOTAL 0.5 mg/dL (0.2-1.0); CALCIUM 7.9 mg/dL (8.5-10.1); CARBON DIOXIDE 30 mmol/L (21-32); CHLORIDE 107 mmol/L (98-107); CREATININE 0.4 mg/dL (0.6-1.3); GLUCOSE 98 mg/dL (74-106); POTASSIUM 3.4 mmol/L (3.5-5.1); SODIUM SERUM 141 mmol/L (136-145); TOTAL PROTEIN, SERUM 5.4 g/dL (6.4-8.2); UREA NITROGEN, BLOOD 11 mg/dL (7-18)
[2024-07-21 07:31] LABS: THYROID STIMULATING HORMONE 13.078 mIU/mL (0.358-3.740)
[2024-07-21] MEDS: CEFEPIME HCL 2 GM in IV DEXTROSE 5% 100 ML IV SCH (08:11)
[2024-07-21] MEDS: POTASSIUM CHLORIDE 20 MEQ TAB.PRT.SR PO ONE (10:40)
[2024-07-22] VITALS (12 sets, daily range): BP systolic 101–111; BP diastolic 51–81; TEMP 97.8–98.5; O2SAT 96–100
[2024-07-22] MEDS: LEVOTHYROXINE SODIUM 75 MCG TABLET PO SCH (06:53)
[2024-07-22 07:18] LABS: BASOPHILS % (AUTO) 0.2 % (0.0-2.0); DIFFERENTIAL COMMENT 0; EOSINOPHILS % (AUTO) 0.5 % (0.0-7.0); HEMATOCRIT 31.7 % (31.2-41.9); HEMOGLOBIN 10.2 g/dL (10.9-14.3); LYMPHOCYTES # (AUTO) 1.4 K/uL (0.8-4.8); LYMPHOCYTES % (AUTO) 19.8 % (20.5-51.5); MEAN CORPUSCULAR HGB CONC 32 g/dL (32.3-35.6); MEAN CORPUSCULAR VOLUME 105.4 fL (75.5-95.3); MONOCYTES # (AUTO) 0.4 K/uL (0.1-1.30); MONOCYTES % (AUTO) 6.6 % (0.0-11.0); NEUTROPHILS % (AUTO) 72.9 % (38.5-71.5); PLATELET COUNT (AUTO) 378 K/uL (179-408); RED BLOOD CELL COUNT(AUTO) 3.01 MIL/uL (3.63-4.92); RED CELL DISTRIBUTION WIDTH 16.8 % (12.3-17.7); WHITE BLOOD COUNT (AUTO) 6.8 K/uL (3.8-11.8)
[2024-07-22 07:24] LABS: CALCIUM 8.3 mg/dL (8.5-10.1); CARBON DIOXIDE 28 mmol/L (21-32); CHLORIDE 104 mmol/L (98-107); CREATININE 0.3 mg/dL (0.6-1.3); GLUCOSE 81 mg/dL (74-106); POTASSIUM 3.7 mmol/L (3.5-5.1); SODIUM SERUM 137 mmol/L (136-145); UREA NITROGEN, BLOOD 10 mg/dL (7-18)
[2024-07-22] MEDS: ACETAMINOPHEN 325 MG TABLET PO PRN (09:34)
[2024-07-22] MEDS: ENSURE ENLIVE (VAN) 240 ML LIQUID PO SCH (16:53)
[2024-07-23] VITALS: TEMP 98.5
[2024-07-23 04:00] VITALS: TEMP 98.1
[2024-07-23] MEDS: LEVOTHYROXINE SODIUM 88 MCG TABLET PO SCH (07:00)
[2024-07-23 07:05] LABS: CARBON DIOXIDE 29 mmol/L (21-32); CHLORIDE 101 mmol/L (98-107); CREATININE 0.4 mg/dL (0.6-1.3); GLUCOSE 85 mg/dL (74-106); POTASSIUM 3.2 mmol/L (3.5-5.1); SODIUM SERUM 137 mmol/L (136-145); UREA NITROGEN, BLOOD 9 mg/dL (7-18)
[2024-07-23] MEDS: POTASSIUM CHLORIDE 20 MEQ POWDER PACKET PO ONE (09:45)
[2024-07-23] MEDS ORDERED: ALBU1.25 NEB (10:03)
[2024-07-23] MEDS ORDERED: LEVO88TA5 PO (10:03)
[2024-07-23] MEDS ORDERED: Lactose-Free Food PO (10:03)
[2024-07-23] MEDS ORDERED: LIOT5TAB7 PO (10:03)
[2024-07-23] MEDS ORDERED: IPRA0.2S6 NEB (10:03)
[2024-07-23] MEDS ORDERED: MODA100T29 PO (10:03)
[2024-07-23] MEDS ORDERED: MEGE400O4 PO (10:03)
[2024-07-23 11:44] VITALS: BP 98/65; TEMP 97.8; O2SAT 94
== END 2024-07-23 13:40 | DRG 177 ==
LOC: MEDSURG3 19:50
PROVIDERS: ATTEND Nurse Practitioner Acute Care
DX: J69.0 Pneumonitis due to inhalation of food and vomit (principal); E43 Unspecified severe protein-calorie malnutrition; G93.41 Metabolic encephalopathy; J96.01 Acute respiratory failure with hypoxia; Z68.1 Body mass index [BMI] 19.9 or less, adult; J91.8 Pleural effusion in other conditions classified elsewhere; R64 Cachexia; E88.09 Other disorders of plasma-protein metabolism, not elsewhere classified; R62.7 Adult failure to thrive; E03.9 Hypothyroidism, unspecified; R53.81 Other malaise; K44.9 Diaphragmatic hernia without obstruction or gangrene; J43.9 Emphysema, unspecified; I10 Essential (primary) hypertension; Z91.81 History of falling; Z87.891 Personal history of nicotine dependence; Z88.0 Allergy status to penicillin; R91.1 Solitary pulmonary nodule; I25.10 Atherosclerotic heart disease of native coronary artery without angina pectoris; Z95.5 Presence of coronary angioplasty implant and graft; Z88.6 Allergy status to analgesic agent; Z86.73 Personal history of transient ischemic attack (TIA), and cerebral infarction without residual deficits; Z79.899 Other long term (current) drug therapy; Z79.890 Hormone replacement therapy; E78.5 Hyperlipidemia, unspecified; E87.6 Hypokalemia
CPT/HCPCS: 36415; 71045; 83605; 83735; 84100; 84443; 85025; 87040; 93005; 94640; 94664; 94760; G0378; J0692; J1956; J3370; J3590; J7042; J8999